=== PATIENT | female | born 1990 | race Caucasian/White ===

== ENCOUNTER 2017-10-05 03:35 | Emergency (ER) | payer OTHER, MEDICAID ==
[~2017-10-05] VITALS: Ht 162.6 cm; Wt 65.0 kg
[2017-10-05] MEDS ORDERED: ACETAMINOPHEN 325MG TABLET PO STA (06:28)
[2017-10-05 07:13] LABS: CLARITY URINE CLEAR (CLEAR); COLOR URINE YELLOW (YELLOW); KETONES URINE 1+ (NEGATIVE); LEUKOCYTE ESTERASE URINE NEGATIVE (NEGATIVE); NITRITE URINE NEGATIVE (NEGATIVE); OCCULT BLOOD URINE TRACE (NEGATIVE); PROTEIN URINE NEGATIVE (NEGATIVE); SPECIFIC GRAVITY URINE 1.013 (1.005-1.030); UROBILINOGEN URINE 0.2 E.U./dL (0.2-1.0)
[2017-10-05 07:58] LABS: BASOPHILS % 0.3 % (0.0-2.0); EOSINOPHILS % 0.5 % (0.0-5.0); HEMATOCRIT. 34.4 % (36.0-48.0); HEMOGLOBIN. 11.5 g/dL (12.0-16.0); LYMPHOCYTES % 9.3 % (20.0-50.0); MEAN CORPUSCULAR VOLUME 89.7 fL (81.0-99.0); MONOCYTES % 7.6 % (2.0-8.0); NEUTROPHILS % 82.3 % (40.0-76.0); PLATELET 335 x1000/uL (130-400); RED BLOOD CELL COUNT 3.84 mill/uL (4.2-5.4); RED CELL DISTRIBUTION WIDTH 13.1 % (11.6-14.6)
[2017-10-05 08:04] LABS: CHLORIDE 107 mEq/L (98-107)
[2017-10-05 08:12] LABS: PROTHROMBIN TIME 10.7 sec (9.4-11.6)
[2017-10-05 08:16] LABS: B-HCG QUANTITATIVE 324 mIU/mL (<3)
[2017-10-05] MEDS ORDERED: KETOROLAC 60MG/2ML VIAL IM ONE (09:45)
[2017-10-05] MEDS ORDERED: CEFTRIAXONE SODIUM 250 MG/VIAL IM ONE (09:45)
[2017-10-05] MEDS ORDERED: LIDOCAINE HCL 1% 20ML VIAL (Pyxis) INJ MC ONE (09:45)
[2017-10-05 11:03] VITALS: BP 121/74
== END 2017-10-05 11:01 | disposition home or self-care (01) ==
LOC: ER 03:35
DX: N73.0 Acute parametritis and pelvic cellulitis (principal)
CPT/HCPCS: 36415; 76830; 76856; 80053; 81001; 81025; 83690; 84702; 85025; 85610; 86850; 86900; 86901; 96372; 99285; J0696; J1885

== ENCOUNTER 2019-10-16 21:56 | Emergency (ER) | payer MEDICAID, OTHER ==
[~2019-10-16] VITALS: Ht 154.9 cm; Wt 72.0 kg
[2019-10-16 22:26] LABS: CLARITY URINE CLEAR (CLEAR); COLOR URINE YELLOW (YELLOW); KETONES URINE NEGATIVE (NEGATIVE); LEUKOCYTE ESTERASE URINE NEGATIVE (NEGATIVE); NITRITE URINE NEGATIVE (NEGATIVE); OCCULT BLOOD URINE TRACE (NEGATIVE); PROTEIN URINE NEGATIVE (NEGATIVE); SPECIFIC GRAVITY URINE 1.004 (1.005-1.030); UROBILINOGEN URINE 0.2 E.U./dL (0.2-1.0)
[2019-10-17 02:41] VITALS: BP 105/41
[2019-10-17] MEDS ORDERED: ACETAMINOPHEN 325MG TABLET PO PRN (07:00)
[2019-10-17 08:15] LABS: BASOPHILS % 0.2 % (0.0-2.0); EOSINOPHILS % 1.4 % (0.0-5.0); HEMATOCRIT. 36.5 % (36.0-48.0); HEMOGLOBIN. 12.6 g/dL (12.0-16.0); LYMPHOCYTES % 23.6 % (20.0-50.0); MEAN CORPUSCULAR HEMOGLOBIN 31.4 pg (28.0-32.0); MEAN CORPUSCULAR VOLUME 90.6 fL (81.0-99.0); MEAN PLATELET VOLUME 7.1 fl (7.4-10.4); MONOCYTES % 7.8 % (2.0-8.0); PLATELET 403 x1000/uL (130-400); RED BLOOD CELL COUNT 4.03 mill/uL (4.2-5.4); RED CELL DISTRIBUTION WIDTH 13.2 % (11.6-14.6)
[2019-10-17 08:20] LABS: CHLORIDE 104 mEq/L (98-107)
[2019-10-17 08:45] LABS: B-HCG QUANTITATIVE 50504 mIU/mL (<3)
== END 2019-10-17 08:49 | disposition home or self-care (01) ==
LOC: ER 21:56
DX: O20.0 Threatened abortion (principal); O44.01 Complete placenta previa NOS or without hemorrhage, first trimester; O34.11 Maternal care for benign tumor of corpus uteri, first trimester; Z3A.13 13 weeks gestation of pregnancy
CPT/HCPCS: 36415; 76801; 80053; 81003; 84702; 85025; 86850; 86900; 99284